=== PATIENT | female | born 1970 | race Caucasian/White ===

== ENCOUNTER → 2024-10-12 14:15 | Outpatient (CLI) | payer OTHER, SELFPAY ==
--- NOTE | 2024-10-12 14:19 | DI.RAD.S_ITS ---
PROCEDURE: FL BARIUM SWALLOW INDICATIONS: DYSPHAGIA COMPARISON: None. FINDINGS: Function: There is normal esophageal peristalsis. No elicited gastroesophageal reflux. There is normal transit of a calibrated barium tablet through the esophagus into the stomach. Morphology: Air-contrast images demonstrate normal mucosal morphology. Single contrast views show no esophageal strictures, extrinsic mass effects, or diverticula. Limited images of the stomach demonstrate normal appearance. IMPRESSION: Unremarkable exam. Dictated by: Kelsey Lima M.D. on 10/12/2024 at 16:52 Approved by: Kelsey Lima M.D. on 10/12/2024 at 16:52
== END ==
PROVIDERS: PCP Physician Assistant Medical; Referring Provider Surgery; Visit Provider Surgery
DX: R13.10 Dysphagia, unspecified (principal)
CPT/HCPCS: 74220